=== PATIENT | female | born 1965 | race Caucasian/White ===

== ENCOUNTER 2017-06-18 20:22 | Emergency (ER) | payer SELFPAY ==
[~2017-06-18] VITALS: Ht 167.6 cm; Wt 131.5 kg
[2017-06-18] MEDS ORDERED: TRAMADOL HCL50 MG PO (22:58)
[2017-06-18] MEDS ORDERED: CYCLOBENZAPRINE10 MG PO (22:58)
== END 2017-06-18 23:29 | disposition home or self-care (01) ==
LOC: ED 20:22
DX: K80.20 Calculus of gallbladder without cholecystitis without obstruction (principal); Z87.891 Personal history of nicotine dependence; Z88.8 Allergy status to other drugs, medicaments and biological substances; Z88.1 Allergy status to other antibiotic agents; Z91.048 Other nonmedicinal substance allergy status
CPT/HCPCS: 74176; 80053; 81001; 85025; 96374; 96375; 99284; J1170; J1885; J2405